=== PATIENT | female | born 1980 | race Caucasian/White ===

== ENCOUNTER 2017-11-30 16:24 | Emergency (ER) | payer OTHER ==
[2017-11-30 17:35] LABS: BASOPHILS 0.5 % (0-2); EOSINOPHILS 1.6 % (0-7); HEMATOCRIT 43.6 % (36.0-48.0); HEMOGLOBIN 15.2 g/dL (12-16); IMMATURE GRANULOCYTES 0.4 % (0-5); MCH 31.2 pg (26.0-34.0); MCHC 34.9 g/dL (31.0-37.0); MCV 89.5 fL (80.0-100.0); MEAN PLATELET VOLUME 10.3 fL (7.4-10.4); NEUTROPHILS 54.5 % (40-80); RBC 4.87 10x6/uL (4.00-5.40); RDW 13.3 % (11.5-14.5)
[2017-11-30 17:39] LABS: APPEARANCE CLEAR (CLEAR); BILIRUBIN NEGATIVE (NEGATIVE); COLOR STRAW (YELLOW); GLUCOSE NEGATIVE (NEGATIVE); KETONE NEGATIVE (NEGATIVE); NITRITE NEGATIVE (NEGATIVE); PROTEIN NEGATIVE (NEGATIVE); SPECIFIC GRAVITY 1.005 (1.005-1.020); UROBILINOGEN NORMAL (NORMAL)
[2017-11-30 17:39] LABS: PLATELET COUNT 139 10x3/uL (130-400)
[2017-11-30 18:17] LABS: ALBUMIN 4.2 g/dL (3.4-5.0); ANION GAP 11.4 mmol/L (8-16); BILIRUBIN - TOTAL 0.17 mg/dL (0.2-1.3); CARBON DIOXIDE 28.3 mmol/L (21.0-32.0); CREATININE - SERUM 0.9 mg/dL (0.6-1.3); POTASSIUM - SERUM 3.7 mmol/L (3.5-5.1); PROTEIN - SERUM 7.6 g/dL (6.4-8.2)
[2017-11-30 18:23] LABS: CALCIUM 9.6 mg/dL (8.5-10.1)
== END 2017-11-30 20:20 | disposition home or self-care (01) ==
LOC: D.ER 16:24
PROVIDERS: Family Medicine; Nurse Practitioner Family
DX: R10.12 Left upper quadrant pain (principal); K59.00 Constipation, unspecified; K80.80 Other cholelithiasis without obstruction; Z85.3 Personal history of malignant neoplasm of breast